=== PATIENT | female | born 1990 | race Caucasian/White ===

== ENCOUNTER 2017-01-10 07:14 | Emergency (ER) | payer MEDICAID ==
[2017-01-10 07:42] LABS: BASOPHILS 0.1 % (0-2); EOSINOPHILS 0.2 % (0-7); HEMATOCRIT 42.8 % (36.0-48.0); HEMOGLOBIN 14.2 g/dL (12-16); IMMATURE GRANULOCYTES 0.2 % (0-5); LYMPHOCYTES 3.3 % (15-50); MCHC 33.2 g/dL (31.0-37.0); MCV 87.3 fL (80.0-100.0); MEAN PLATELET VOLUME 9.9 fL (7.4-10.4); MONOCYTES 3.9 % (2-11); NEUTROPHILS 92.3 % (40-80); RDW 12.5 % (11.5-14.5); WBC 13.8 10x3/uL (4.8-10.8)
[2017-01-10 07:45] LABS: PLATELET COUNT 258 10x3/uL (130-400)
[2017-01-10 07:54] LABS: APPEARANCE HAZY (CLEAR); BILIRUBIN NEGATIVE (NEGATIVE); COLOR YELLOW (YELLOW); GLUCOSE NEGATIVE (NEGATIVE); KETONE MODERATE mg/dL (NEGATIVE); NITRITE NEGATIVE (NEGATIVE); PROTEIN NEGATIVE (NEGATIVE); SPECIFIC GRAVITY 1.005 (1.005-1.020); UROBILINOGEN NORMAL (NORMAL)
[2017-01-10 07:57] LABS: BACTERIA MODERATE /hpf (NONE SEEN); MUCUS <1+ /lpf (NONE SEEN)
[2017-01-10 08:03] LABS: ALBUMIN 4.3 g/dL (3.4-5.0); ALKALINE PHOSPHATASE 61 U/L (46-116); ALT (SGPT) 21 U/L (10-68); BILIRUBIN - TOTAL 0.89 mg/dL (0.2-1.3); CALC OSMOLALITY 280 mosm/kg (275-300); CALCIUM 9.4 mg/dL (8.5-10.1); CARBON DIOXIDE 23.5 mmol/L (21.0-32.0); CHLORIDE - SERUM 102 mmol/L (98-107); CREATININE - SERUM 0.9 mg/dL (0.6-1.3); GLUCOSE 119 mg/dL (74-106); POTASSIUM - SERUM 3.5 mmol/L (3.5-5.1); PROTEIN - SERUM 8.4 g/dL (6.4-8.2); SODIUM 139 mmol/L (136-145); UREA NITROGEN 19 mg/dL (7-18); eGFR NON AFRICAN AMERICAN 81 mL/min (90-120)
== END 2017-01-10 09:57 | disposition home or self-care (01) ==
LOC: D.ER 07:14
PROVIDERS: Emergency Medicine
DX: K52.9 Noninfective gastroenteritis and colitis, unspecified (principal); R82.71 Bacteriuria; F17.200 Nicotine dependence, unspecified, uncomplicated

== ENCOUNTER → 2018-04-16 13:50 | Outpatient (CLI) | payer MEDICAID | END | disposition home or self-care (01) | LOC: D.CT 04-13 14:30 | DX: R10.9 Unspecified abdominal pain (principal) ==

== ENCOUNTER 2019-06-21 22:12 | Emergency (ER) | payer MEDICAID ==
[~2019-06-21] VITALS: Ht 157.5 cm; Wt 54.4 kg
[2019-06-21 22:20] VITALS: Ht 157.5 cm; Wt 54.4 kg
[2019-06-21] MEDS ORDERED: PRISTIQ50 MG PO (22:21)
[2019-06-21] MEDS ORDERED: ELAVIL25 MG PO (22:22)
[2019-06-21] MEDS ORDERED: ADDERALL 20 MG20 M1 PO (22:22)
[2019-06-21] MEDS ORDERED: ULTRAM50 MG PO (22:22)
[2019-06-21] MEDS ORDERED: VALIUM10 MG PO (22:23)
[2019-06-21 22:26] LABS: BASOPHILS 0.5 % (0-2); EOSINOPHILS 2.7 % (0-7); HEMATOCRIT 39.5 % (36.0-48.0); IMMATURE GRANULOCYTES 0.5 % (0-5); LYMPHOCYTES 32.2 % (15-50); MCH 28.6 pg (26.0-34.0); MCHC 32.9 g/dL (31.0-37.0); MEAN PLATELET VOLUME 9.3 fL (7.4-10.4); MONOCYTES 8.8 % (2-11); NEUTROPHILS 55.3 % (40-80); PLATELET COUNT 238 10x3/uL (130-400); RBC 4.54 10x6/uL (4.00-5.40); RDW 12.3 % (11.5-14.5); WBC 7.5 10x3/uL (4.8-10.8)
[2019-06-21 22:34] LABS: CALC OSMOLALITY 276 mosm/kg (275-300); CARBON DIOXIDE 28.3 mmol/L (21.0-32.0); CHLORIDE - SERUM 100 mmol/L (98-107); CREATININE - SERUM 0.9 mg/dL (0.6-1.3); GLUCOSE 103 mg/dL (74-106); POTASSIUM - SERUM 3.7 mmol/L (3.5-5.1); SODIUM 139 mmol/L (136-145); UREA NITROGEN 9 mg/dL (7-18); eGFR NON AFRICAN AMERICAN 79 mL/min (90-120)
[2019-06-21 22:43] LABS: ALKALINE PHOSPHATASE 69 U/L (30-120); ALT (SGPT) 16 U/L (10-68); AMYLASE - SERUM 28 U/L (25-115); BILIRUBIN - TOTAL 0.18 mg/dL (0.2-1.3); LIPASE 70 U/L (73-393); PROTEIN - SERUM 7.7 g/dL (6.4-8.2)
[2019-06-21 22:50] LABS: BILIRUBIN NEGATIVE (NEGATIVE); GLUCOSE NEGATIVE (NEGATIVE); KETONE NEGATIVE (NEGATIVE); NITRITE NEGATIVE (NEGATIVE); UROBILINOGEN NORMAL (NORMAL)
[2019-06-21 22:51] LABS: EPITHELIAL CELLS 0-5 /hpf (0-5); RED CELLS - URINE 0-5 /hpf (0-5)
[2019-06-21 22:52] LABS: BACTERIA FEW /hpf (NEGATIVE); HCG URINE NEGATIVE (NEGATIVE)
[2019-06-21 22:57] LABS: TROPONIN-I < 0.017 ng/mL (0.000-0.060)
[2019-06-22] MEDS ORDERED: DIFLUCAN150 MG PO (01:01)
[2019-06-22] MEDS ORDERED: MACROBID100 MG PO (01:02)
[2019-06-22] MEDS ORDERED: KEFLEX500 MG PO (01:02)
[2019-06-22 02:30] VITALS: BP 123/76
== END 2019-06-22 02:30 | disposition home or self-care (01) ==
LOC: D.ER 22:12
PROVIDERS: Family Medicine
DX: N39.0 Urinary tract infection, site not specified (principal); R30.0 Dysuria; R34 Anuria and oliguria; Z20.2 Contact with and (suspected) exposure to infections with a predominantly sexual mode of transmission; B37.9 Candidiasis, unspecified

== ENCOUNTER 2019-10-01 16:00 | Inpatient (IN) | payer MEDICAID ==
[~2019-10-01] VITALS: Ht 157.5 cm; Wt 49.0 kg
--- NOTE | ~2019-10-01 | OP ---
PATIENT NAME: ROMEL SHANKAR MEDICAL RECORD: [id number] LOCATION:[facility] [id number] ADMISSION DATE:10/03/19 SURGEON: DARWIN ARAMBULA DO DATE OF OPERATION: 10/02/2019 PREOPERATIVE DIAGNOSIS: Right adnexal mass. POSTOPERATIVE DIAGNOSES: Right hemorrhagic cyst, left endometrioma, severe pelvic adhesions, severe endometriosis. PRIMARY SURGEON: Darwin Arambula DO NURSE ASSISTANT SURGEON: Blayne Horn MD ANESTHESIA: General ET tube. PROCEDURE: Right cystectomy, lysis of adhesions, left drainage of endometrioma. FINDINGS: Severe pelvic adhesions in the posterior cul-de-sac of both ovaries and tubes and the posterior uterus to the pelvic sidewalls and posterior part of the abdomen, right hemorrhagic cyst, and left endometrioma. SPECIMENS: Endometriotic lesions, right ovarian cyst wall. ESTIMATED BLOOD LOSS: 50 mL. INTRAVENOUS FLUIDS: 1400 mL. URINE OUTPUT: 300 mL clear urine. COMPLICATIONS: Attempt was made to remove the endometrioma entirely; however, due to the extent of the adhesions of the left ovary to the posterior cul-de-sac and left pelvic sidewall, it was unable to be removed. DESCRIPTION OF PROCEDURE: Risks, benefits, alternatives, and indications of the procedure were discussed with the patient. She voiced understanding of the procedure and signed the consent. She was taken to the OR where general anesthesia was administered and found to be adequate. She was placed in the dorsal lithotomy position. She was prepped and draped in the normal sterile fashion. A urinary catheter was placed under sterile conditions. A speculum was placed in the posterior aspect of the vagina. Single-tooth tenaculum was used to grasp the anterior lip of the cervix. The cervix was dilated to accommodate the HUMI manipulator. The uterus was sounded to 8 cm and the HUMI manipulator was placed without difficulty. Tenaculum was removed with good hemostasis at the tenaculum site. All other instruments besides the HUMI were removed from the vagina. Gloves were changed and attention was then turned to the abdomen. Marcaine was placed in the umbilical fold and a 5 mm incision was created with a scalpel. The abdomen was elevated and the 5 mm port was placed with the laparoscope for visualization. Pneumoperitoneum was achieved to 15 mmHg and an 8 mm port was placed in the left lower quadrant 2 cm superior and 2 cm medial to the left ASIS under direct laparoscopic visualization. A right 5 mm port was placed 2 cm superior and 2 cm medial to the right ASIS under direct laparoscopic visualization with good placement. The patient was placed in steep Trendelenburg position and the bowels were displaced out of the abdomen with a blunt probe. The uterus was elevated and extensive adhesions of the right and OPERATIVE REPORT [id number] DEATHERAGE,ROMEL left ovaries and right and left fallopian tubes were noted to the right and left pelvic sidewalls as well as extensive adhesions of the posterior uterus to the right and left ovaries. There was a large 5 mm hemorrhagic cyst noted on the right. This cyst was attempted to be removed unruptured; however, during the process of removal, it was ruptured and about 20 mL of blood was noted. The capsule was completely removed with a combination of blunt and sharp dissection with good hemostasis at the cyst bed site. Extensive lysis of adhesions of the right ovary and the posterior portion of the uterus was performed with a combination of sharp and blunt dissection with the laparoscopic peanut. On the left, there was a 2 cm chocolate cyst noted, which ruptured during lysis of adhesions. Attempt was made to completely remove the endometrioma; however, only portions of endometrioma were able to be removed due to extensive adhesions of the left ovary and the left cyst to the left pelvic sidewall. The pelvis was copiously irrigated and suctioned and good hemostasis was noted at all lysis of adhesion sites and the cyst removal on the right as well as hemostasis on the left at the endometrioma. At this time, it was determined that this extent of lysis of adhesions was completed and further lysis of adhesions would only increase the risk of complications during the surgery and so Ofelia was placed and all instruments were removed from the abdomen. The patient was taken out of Trendelenburg position and pneumoperitoneum was released. All ports were removed and port sites were closed with 3-0 Monocryl and Dermabond covering. All needle, lap, sponge, and instrument counts were correct times 2. The patient tolerated the procedure well and she was taken to the recovery room in stable condition. NTS:[id number] Voice Confirmation ID: [id number] DOCUMENT ID: [id number] DARWIN ARAMBULA DO CC: [id number] DICTATION DATE: 10/07/191055 [place] DESIGNER: 10/07/192149 DIS IN 10/07/19 [facility] [address] [place] [address]
[~2019-10-01 16:00] MED LIST: ADDERALL 20 MG20 M1 PO; DIFLUCAN150 MG PO; ELAVIL25 MG PO; KEFLEX500 MG PO; MACROBID100 MG PO; PRISTIQ50 MG PO; ULTRAM50 MG PO; VALIUM10 MG PO
--- NOTE | 2019-10-01 16:48 | NUR ---
AMBULATORY TO UNIT FROM [facility]. TAKEN TO ROOM 1219 FOR CONTINUED CARE. VSS. AA&O X3. ORIENTED TO ROOM, VERBALIZES UNDERSTANDING. C/O ABD DISCOMFORT TO RLQ -08/29, REQUESTS INTERVENTION. WILL PROVIDE ONCE ORDERS REC'D.
[2019-10-01 17:03] LABS: BASOPHILS 0.9 % (0-2); EOSINOPHILS 2.1 % (0-7); HEMATOCRIT 35.4 % (36.0-48.0); HEMOGLOBIN 11.4 g/dL (12-16); IMMATURE GRANULOCYTES 0.2 % (0-5); MCH 28.2 pg (26.0-34.0); MCHC 32.2 g/dL (31.0-37.0); MCV 87.6 fL (80.0-100.0); MEAN PLATELET VOLUME 9.6 fL (7.4-10.4); MONOCYTES 9.7 % (2-11); NEUTROPHILS 53.1 % (40-80); PLATELET COUNT 209 10x3/uL (130-400); RBC 4.04 10x6/uL (4.00-5.40); RDW 13.2 % (11.5-14.5); WBC 5.8 10x3/uL (4.8-10.8)
[2019-10-01 17:12] LABS: CALC OSMOLALITY 283 mosm/kg (275-300); CALCIUM 8.6 mg/dL (8.5-10.1); CARBON DIOXIDE 29.7 mmol/L (21.0-32.0); CHLORIDE - SERUM 106 mmol/L (98-107); CREATININE - SERUM 0.9 mg/dL (0.6-1.3); GLUCOSE 104 mg/dL (74-106); POTASSIUM - SERUM 3.7 mmol/L (3.5-5.1); SODIUM 143 mmol/L (136-145); UREA NITROGEN 10 mg/dL (7-18); eGFR NON AFRICAN AMERICAN 79 mL/min (90-120)
--- NOTE | 2019-10-01 17:12 | NUR ---
DR. ARAMBULA AT BEDSIDE, DISCUSSING POC WITH PT AND ANSWERING QUESTIONS. MEDICAL, ANESTHESIA, AND BLOOD CONSENTS SIGNED AND WITNESSED. DR. ARAMBULA EXPLAINED CONSENTS AND RISK AND BENEFITS OF PROCEDURES.
--- NOTE | 2019-10-01 17:26 | NUR ---
C/O RLQ ABD DISCOMFORT, REQUESTS INTERVENTION. IVP HYDROMORPHONE GIVEN PER ORDER AND PT REQUEST. DINNER TRAY PROVIDED. DENIES ADDITIONAL NEEDS. BED IN LOW POSITION WITH SRUP X2. RN REMAINS AT BEDSIDE FOR ADMISSION ASSESSMENT TO BE COMPLETED.
[2019-10-01] MEDS ORDERED: ADDERALL 30 MG30 MG PO (17:29)
[2019-10-01] MEDS ORDERED: ELAVIL25 MG PO (17:30)
[2019-10-01] MEDS ORDERED: CYCLOBENZAPRINE10 MG PO (17:33)
[2019-10-01] MEDS ORDERED: IBUPROFEN800 MG PO (17:34)
[2019-10-01] MEDS ORDERED: THIAMINE IN100 MG/ML IM (17:35)
[2019-10-01] MEDS ORDERED: GABAPENTIN300 MG PO (17:36)
[2019-10-01 17:51] VITALS: BP 102/54; BMI 19.8
--- NOTE | 2019-10-01 17:51 | NUR ---
PAIN REASSESSMENT COMPLETED AT THIS TIME. 05/30. ICE PACK REQUESTED AND PROVIDED PER PT REQUEST. DENIES ADDITIONAL NEEDS. BED IN LOW POSITION WITH SRUP X2. CALL LIGHT AND PHONE WITHIN REACH. WILL CONTINUE TO MONITOR.
[2019-10-01 19:30] VITALS: BP 120/78
--- NOTE | 2019-10-01 19:30 | NUR ---
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
--- NOTE | 2019-10-01 20:04 | NUR ---
REHAN SARGENT, RN TO ROOM TO RESTART IV, PT DECIDED THAT SHE DID NOT WANT IT RESITED, PT INST TO JUST LET ME KNOW IF SHE CHANGES HER MIND, 1ST BAG OF FLAGYL VALENTIN IVPB PER MD ORDERS, SEE BILL, PT C/O HEARTBURN AT THIS TIME, INFORMED PT THAT WHEN I CALL THE DOCTOR I WILL ASK FOR SOMETHING FOR HEARTBURN, PT REQUESTED AND SERVED TAP WATER, DENIES FURTHER NEEDS
--- NOTE | 2019-10-01 20:38 | NUR ---
DR MIRANDA PAGED
--- NOTE | 2019-10-01 20:40 | NUR ---
DR MIRANDA CALLS UNIT, REPORT OF PT'S C/O HEARTBURN, ORDERS FOR PROTONIX 40MG PO X 1 DOSE, READ BACK AND VERIFIED
--- NOTE | 2019-10-01 20:45 | NUR ---
2ND BAG OF FLAGYL HUNG IVPB PER MD ORDERS, SEE EMAR
--- NOTE | 2019-10-01 21:15 | NUR ---
ADM PROTONIX PO AND BENADRYL SIVP PER MD ORDERS, SEE EMAR, PT REPORTS THAT SHE HAS BEEN OUT OF HER REGULAR MEDS THAT SHE TAKES FOR THE LAST COUPLE OF DAYS, INFORMED PT THAT IF SHE STAYS OVERNIGHT TOMORROW NIGHT, THAT DR ARAMBULA WILL MORE THAN LIKELY START HER HOME MEDS THEN, PT VERBALIZES UNDERSTANDING, PT REQUESTED AND PROVIDED TWO BANDAIDS TO PLACE OVER 2 INSECT BITES ON HER LEFT KNEE, PT DENIES FURTHER NEEDS, S/O AT BEDSIDE
--- NOTE | 2019-10-01 21:25 | NUR ---
3RD BAG OF FLAGYL IVPB PER MD ORDERS, SEE EMAR
--- NOTE | 2019-10-01 22:05 | NUR ---
LAST BAG OF FLAGYL HUNG IVPB PER MD ORDERS, SEE EMAR, BEDDING PROVIDED TO S/O, PT REPORTS FEELING BETTER, CONSUME CUP OF PUDDING, DENIES ANY NAUSEA AT THIS TIME, REPORTS THAT S/O WENT OUT TO GET SOMETHING TO EAT AND A COUPLE OF CHEESE ROLL UPS FOR HER, PT INST TO TAKE IT EASY EATING DUE TO HEARTBURN AND NAUSEA EARLIER, PT STATES "OH, I FEEL BETTER NOW, BUT I WILL PROBABLY WANT SOMETHING FOR PAIN LATER", PT INST TO USE CALL LIGHT WHEN NEEDING SOMETHING FOR PAIN, PT VERBALIZES UNDERSTANDING, DENIES NEEDS AT THIS TIME
[2019-10-02] VITALS (9 sets, daily range): BP systolic 102–140; BP diastolic 55–83; Ht 157.5 cm; Wt 49.0 kg
--- NOTE | 2019-10-02 00:12 | NUR ---
PT AWAKE, VS OBTAINED, PT C/O LRQ PAIN, ADM DILAUDID SIVP PER MD ORDERS, SEE EMAR, PT INST OF NPO, WATER AND SNACKS CLEARED FROM BEDSIDE TABLE, PT VERBALIZES UNDERSTANDING, DENIES FURTHER NEEDS, S/O ASLEEP AT BEDSIDE
--- NOTE | 2019-10-02 02:12 | NUR ---
SPOKE TO KEYLA FLORES, CHEMIST ASSISTANT REGARDING PT'S SURGERY THIS AM, ORDER NOT IN COMPUTER, SHE REPORTS TO PUT ORDER IN COMPUTER AND WHAT CONSENT IS FOR
--- NOTE | 2019-10-02 02:16 | NUR ---
PT RESTING WITH EYES CLOSED, AROUSES TO OPENING OF DOOR, PT DENIES NEEDS OR PAIN AT THIS TIME, S/O ASLEEP AT BEDSIDE
--- NOTE | 2019-10-02 04:20 | NUR ---
PT RESTING WITH EYES CLOSED, RESP QUIE, NO DISTRESS NOTED, LEFT UNDISTURBED AT THIS TIME, S/O ASLEEP AT BEDSIDE
--- NOTE | 2019-10-02 05:45 | NUR ---
PT RESTING WITH EYES CLOSED, AROUSES TO SOFT VERBAL STIMULATION, PT UP TO BR, VOIDED WITH NO DIFFICULTY, PT BACK TO BED, VS OBTAINED, SURGICAL CHECK LIST AND LATEX ALLERGY TOOL COMPLETED, PT GIVEN HIBICLENSE BED BATH, CLEAN GOWN APPLIED, JEWELRY AND HAIR TIE REMOVED, SURGICAL CAP, BLUE SKID SOCKS, AND SCD'S APPLIED, POC DISCUSSED WITH PT, PT VERBALIZES UNDERSTANDING, DENIES QUESTIONS
--- NOTE | 2019-10-02 06:20 | NUR ---
SURGERY NOTIFIED FOR PRE PROCEDURAL MED ORDERS
--- NOTE | 2019-10-02 06:32 | NUR ---
L&D CALLS UNIT TO REPORT THAT DR DAVID WAS PUTTING ORDERS IN AT THIS TIME
--- NOTE | 2019-10-02 07:02 | NUR ---
PATIENT LEFT FOR SURGERY.
[2019-10-02 07:35] LABS: HCG SERUM NEGATIVE (NEGATIVE)
--- NOTE | 2019-10-02 11:04 | NUR ---
RECIEVED PATIENT FROM RECOVERY. REPORT TAKEN FROM DEB TINSLEY RN.
--- NOTE | 2019-10-02 11:20 | NUR ---
ASSESSMENT COMPLETE. VSS. 900CC OF CLEAR YELLOW URINE EMPTIED OUT OF HILLS CATH. PATIENT REQUESTING TO HAVE CATH REMOVED SO SHE CAN GET UP OUT OF BED. ADVISED PATIENT DR ARAMBULA WOULD BE ROUNDING SOON AND WE COULD TALK TO HER. PATIENT TEARFUL WHEN TALKING ABOUT SURGERY. DENIES NEEDS EXCEPT TO HAVE CATH REMOVED AT THIS TIME. SCD'S ON BILATERALLY, CALL LIGHT IN REACH, SIDE RAILS UP X 2.
--- NOTE | 2019-10-02 11:45 | NUR ---
ROOM CHECK ON PATIENT. COLD WATER AND SPRITE PROVIDED. PATIENT SIPPING ON WATER. PATIENT CURRENTLY TALKING ON PHONE. SCD'S ON BILATERALLY, CALL LIGHT IN REACH, PHONE IN REACH, SIDE RAILS UP X2. ADVISED PATIENT WHEN DR ARAMBULA PUT IN ORDER WOULD COME IN AND TAKE HILLS CATH OUT. PATIENT VERBALIZED AGREEMENT.
--- NOTE | 2019-10-02 11:45 | NUR ---
DR ARAMBULA IN ROOM WITH PATIENT.
--- NOTE | 2019-10-02 12:15 | NUR ---
ROOM CHECK. NEW ORDERS FROM DR. ARAMBULA REVIEWED WITH PATIENT. PATIENT VERBALIZES UNDERSTANDING AND AGREEMENT. ADVISED PATIENT WOULD BE BACK WITH SUPPLIES TO TAKE HILLS CATH OUT AND D/C IV. CALL LIGHT IN REACH, SIDE RAILS UP X 2. SCD'S ON BILATERALLY.
--- NOTE | 2019-10-02 13:00 | NUR ---
HILLS CATH D/C'D WITH TIP INTACT PER ORDER. PATIENT STATES THAT IT STUNG WHEN CATH WAS COMING OUT. IV RIGHT AC D/C'D WITH TIP INTACT. PATIENT REPORTS THAT ARM HAS BEEN HURTING HER WHERE IV SITE WAS. PATIENT WAS GIVEN VALIUM 10MG PER ORDER. PATIENT REFUSED EFFEXOR STATES THAT IS NOT WHAT SHE TAKES. WILL CONTACT DR FOR NEW ORDER FOR HOME MED. CALL LIGHT IN REACH, SCD'D ON BILAT. SIDE RAILS UP X 2.
--- NOTE | 2019-10-02 14:00 | NUR ---
ROOM CHECK. PATIENT UP TO VOID--300 CC OF CLEAR YELLOW URINE. PATIENT STATES IT FELT GOOD TO STAND UP FOR A FEW MINUTES. PATIENT NEEDED ASSISTANCE WITH PULLING UP UNDERWARE--UNABLE TO BEND OVER WITH OUT PAIN. VSS. PATIENT DENIES ANY NEEDS AT THIS TIME. PATIENT BACK TO BED. CALL LIGHT IN REACH, SCD'D ON BILAT, SIDE RAILS UP X 2.
--- NOTE | 2019-10-02 15:32 | NUR ---
ALSO SPOKE WITH DR PADGETT ON PATIENTS EFFEXOR ORDER. PATINT STATES SHE TAKES DESVENLAFAXINE (PRISTIQ) 50MG DAILY. ORDER RECIEVED FROM DR. PADGETT.
--- NOTE | 2019-10-02 15:32 | NUR ---
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 STATES PAIN IS STILL UNBEARABLE. DR. PADGETT CALLED. ORDERS FOR REGULAR DIET. CHANGE DILAUDID ORDER TO 1MG EVERY 4 HOURS FOR MILD TO MODERATE PAIN, MAY HAVE DILAUID 2MG EVERY 4 HOURS FOR MODERATE TO SEVERE PAIN. START ON PO PAIN PILLS--PERCOCET 5MG, 1 EVERY 4 HOURS FOR MILD TO MODERATE PAIN OR 2 TABS EVERY 6 HOURS FOR MODERATE TO SEVERE PAIN. GIVE 1MG DILAUDID IVP AND 5MG PERCOCET PO NOW. PATIENT UPDATED ON CHANGE IN MEDICATION AND VERBALIZED UNDERSTANDING AND AGREEMENT.
--- NOTE | 2019-10-02 16:00 | NUR ---
ROOM CHECK. VSS. PATIENT UP TO VOID 350CC CLEAR YELLOW URINE. PATIENT NEEDING ASSISTANCE WITH PULLING UP UNDERWARE. STATES PRIOR TO GETTING UP TO BATHROOM HER PAIN LEVEL WAS DOWN TO A 4 OR 5. SIG OTHER ASLEEP IN ROOM. PATIENT DENIES NEEDS AT THIS TIME. CALL LIGHT IN REACH, SIDE RAILS UP X 2, SCD'S ON BILAT.
--- NOTE | 2019-10-02 17:20 | NUR ---
ROOM CHECK. PATIENT RESTING. DENIES NEEDS AT THIS TIME. SIDE RAILS UP X 2, SCD'S ON BILAT, CALL LIGHT IN REACH.
--- NOTE | 2019-10-02 18:10 | NUR ---
PATIENT AND SIG OTHER OUT WALKING IN THE HALLWAY. PATIENT DENIES NEEDS.
--- NOTE | 2019-10-02 18:38 | NUR ---
PATIENT MOVED TO 1278. PATIENT WALKED TO NEW ROOM PUSHING THE WHEELCHAIR WITH HER BELONGINGS. PATIENT ORIENTATED TO NEW ROOM. SHE VERBALIZED UNDERSTANDING. DENIES NEEDS AT THIS TIME. CALL LIGHT IN REACH, SIDE RAILS UP X 2.
--- NOTE | 2019-10-02 20:01 | NUR ---
TORADOL 30MG SLOW IVP PER MD ORDERS AND PT REQUEST. SEE EMAR
--- NOTE | 2019-10-02 20:37 | NUR ---
PATIENTS SIGNIFICANT OTHER TO ROOM WITH ICE CREAM, PT SITTING UP IN BED EATING.
--- NOTE | 2019-10-02 20:38 | NUR ---
ADMINISTERED PERCOCET 5/325MG TWO TABLETS PO PER MD ORDERS AND PT REQUEST FOR PAIN 05/30. SEE EMAR
--- NOTE | 2019-10-02 21:50 | NUR ---
PATIENT AMBULATING IN HALLWAY
--- NOTE | 2019-10-02 22:02 | NUR ---
PT BACK TO ROOM, BENADRYL AND SIMETHICONE ADMINISTERED PER MD ORDERS AND PT REQUEST. NO FURTHER NEEDS IDENTIFIED. SEE EMAR
--- NOTE | 2019-10-03 00:11 | NUR ---
called to room by patient, pt c/o pain. dilaudid 2 mg. administered slow ivp per md orders and pt request. no further needs identified. will continue to monitor.
--- NOTE | 2019-10-03 01:15 | NUR ---
BROUGHT CONRAD TO PATIENTS ROOM PER PT REQUEST BUT PT NOTED TO BE SLEEPING. RETURNED TO [facility].
--- NOTE | 2019-10-03 03:29 | NUR ---
PATIENT SLEEPIGN WITH AUDIBLE SNORING NOTED. NO DISTRESS, WILL CONTINUE TO MONITOR.
--- NOTE | 2019-10-03 05:55 | NUR ---
PT CALLED OUT COMMERCIAL APPRAISER GARCIA FOR PAIN MEDICATION AT THIS TIME
--- NOTE | 2019-10-03 06:12 | NUR ---
IN TO BRING PT PAIN MEDICATION, PATIENT IS SLEEPING. WILL COME BACK LATER.
[2019-10-03 07:29] VITALS: BP 110/61
--- NOTE | 2019-10-03 07:30 | NUR ---
ASSESSMENT COMPLETE. RATES PAIN 09/29. DILAUDID 2MG SLOW IVP GIVEN PER ORDERS. PATIENT STATES ABLE TO BURP BUT NOT PASSING ANY OTHER GAS. FEELS LIKE IF SHE COULD THE PAIN WOULD GET BETTER. STAB INCISIONS X3 ON ABDOMEN WITHOUT REDNESS, SITE WNL. LEFT HAND SL-SITE WNL. VSS. PATIENT SITTING UP IN BED EATING BREAKFEST. CALL LIGHT IN REACH. SIDE RAILS UP X 2. PATIENT UP INDEPENDENT IN ROOM.
[2019-10-03 07:34] LABS: BASOPHILS 0.4 % (0-2); EOSINOPHILS 3.1 % (0-7); HEMOGLOBIN 9.9 g/dL (12-16); IMMATURE GRANULOCYTES 0.3 % (0-5); LYMPHOCYTES 38.3 % (15-50); MCH 28.5 pg (26.0-34.0); MCHC 31.9 g/dL (31.0-37.0); MCV 89.3 fL (80.0-100.0); MEAN PLATELET VOLUME 10.1 fL (7.4-10.4); MONOCYTES 9.3 % (2-11); NEUTROPHILS 48.6 % (40-80); PLATELET COUNT 197 10x3/uL (130-400); RBC 3.47 10x6/uL (4.00-5.40); RDW 13.5 % (11.5-14.5)
--- NOTE | 2019-10-03 09:02 | NUR ---
PATIENT WITH COMPLAINTS OF NOT BEING ABLE TO PASS [place] OR HAVE A BOWEL MOVMENT. DUCOLAX SUP GIVEN PER ORDERS.
--- NOTE | 2019-10-03 10:46 | NUR ---
ROOM CHECK. PATIENT STATES SHE WAS ABLE TO HAVE A SMALL BOWEL MOVMENT WITH GAS. VOIDED X 1 (DID NOT MEASURE). FEELS A LITTLE BETTER AFTER PASSING SOME GAS. DENIES ANY NEEDS AT THIS TIME. CALL LIGHT IN REACH, SIDE RAILS UP X2.
[2019-10-03 12:05] VITALS: BP 101/60
--- NOTE | 2019-10-03 12:07 | NUR ---
ROOM CHECK. PATIENT STATES HAS BEEN ABLE TO PASS SOME GAS. WILL WALK HALWAYS AFTER LUNCH. UP INDEPENDENT IN ROOM. PATIENT LAYING ON HER LEFT SIDE IN BED. CALL LIGHT IN REACH, SIDE RAILS X 2.
--- NOTE | 2019-10-03 12:15 | NUR ---
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 STATES SHE COUGHED UP SOME PHELGM THAT WAS BROWN WITH SPOTS OF BLOOD. STATES THE OUTSIDE OF HER NECK AND UPPER CHEST ARE STARTING TO HURT AND SHE CAN FEEL "BUBBLES" UNDER HER SKIN. RN PALPATED SOME CREPITUS ON RIGHT SIDE OF NECK. PATIENT STATES WAS VERY TENDER TO THE TOUCH. PATIENT ADVISED RN WOULD CONTACT DR. ARAMBULA.
--- NOTE | 2019-10-03 12:20 | NUR ---
DR ARAMBULA CONTACTED. ORDERS FOR ANESTHESIA TO COME LOOK AT PATIENT AND CHEST XRAY. PATIENT UPDATED AND EDUCATED ON PLAN. SHE VERBALIZED UNDERSTANDING AND AGREEMENT.
--- NOTE | 2019-10-03 12:22 | NUR ---
SPOKE WITH DR ROBERSON-HE WILL SEND SOMEONE TO SEE PATIENT.
--- NOTE | 2019-10-03 12:30 | NUR ---
DR ARAMBULA IN TO SEE PATIENT.
--- NOTE | 2019-10-03 12:47 | NUR ---
PATIENT SENT TO XRAY.
--- NOTE | 2019-10-03 12:59 | NUR ---
PATIENT BACK FROM XRAY.
--- NOTE | 2019-10-03 13:25 | NUR ---
ROOM CHECK. PATIENT UP TO BATHROOM. STATES PASSING GAS. NECK, SHOULDERS AND UPPER CHEST CONTINUE TO HURT. PATIENT REQUESTING VALIUM. VALIUM 10MG GIVEN PER ORDER. PATIENT DENIES ANY OTHER NEEDS. CALL LIGHT IN REACH, SIDE RAILS UP X2.
--- NOTE | 2019-10-03 14:11 | NUR ---
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 RATES PAIN 6/10 IN NECK, SHOULDERS AND CHEST. STATES ABD IS STARTING TO FEEL BETTER AFTER PASSING GAS. PERCOCET PO GIVEN PER ORDERS. CALL LIGHT IN REACH, SIDE RAILS UP X 2.
--- NOTE | 2019-10-03 15:35 | NUR ---
ROOM CHECK. PATIENT RESTING WITH EYES CLOSE. STATES SHE FOUND A COMFORTABLE POSITION AND IS DOING OK. CONTINUES TO PASS GAS. DENIES NEEDS AT THIS TIME. CALL LIGHT IN REACH, SIDE RAILS X 2.
--- NOTE | 2019-10-03 15:41 | NUR ---
CALLED DR. ARAMBULA WITH RESULTS OF NECK XRAY. SHE WILL CALL BACK WITH ORDERS.
--- NOTE | 2019-10-03 16:05 | NUR ---
ROOM CHECK. PATIENT RESTING IN BED. RATES PAIN 5/10. STATES IS GETTING BETTER. DENIES NEEDS AT THIS TIME. CALL LIGHT IN REACH. SIDE RAILS UP X 2.
--- NOTE | 2019-10-03 16:10 | NUR ---
SPOKE WITH DR ARAMBULA. STATES XRAY SHOWS AIR IN ABDOMEN WHICH CAN BE A RESULT OF THE SURGERY. MONITOR PATIENT FOR S/S OF INFECTION AND RESP DISTRESS , VITALS Q4 WITH PULSE OX AND CBC IN AM. WILL KEEP PAITENT OVERNIGHT. PATIENT NOTIFIED OF POC FOR TREATMENT. VSS. PATIENT VERBALIZED UNDERSTANDING AND AGREEMENT.
[2019-10-03 16:19] VITALS: BP 106/51
--- NOTE | 2019-10-03 16:30 | NUR ---
ROOM CHECK. PATIENT RESTING IN BED. STATES HAS BEEN UP TO THE BATHROOM ONCE IN THE PAST HOUR. STATES VOIDING GOOD, PASSING GAS. DENIES NEEDS. CALL LIGHT IN REACH, SIDE RAILS UP X2.
--- NOTE | 2019-10-03 17:06 | NUR ---
ROOM CHECK. PATIENT STATES STOMACH FEELS BETTER, PAIN CONTINUES IN NECK, SHOULDER AND CHEST. DENIES ANY TROUBLE BREATHING. PATIENT UP TO BATHROOM. MOM IN ROOM WITH PATIENT. PATIENT DENIES ANY NEEDS AT THIS TIME.
--- NOTE | 2019-10-03 18:16 | NUR ---
ROOM CHECK. RATES PAIN 07/30. PERCOCET PO GIVEN PER ORDER. PATIENT DENIES NEEDS AT THIS TIME. CALL LIGHT IN REACH, SIDE RAILS UP X 2.
--- NOTE | 2019-10-03 18:52 | NUR ---
PAIN REASSESSMENT. PATIENT SLEEPING. BREATHING EVEN AND UNLABORED. WILL LET PATIENT REST.
--- NOTE | 2019-10-03 19:00 | NUR ---
PATIENT SLEEPING WITH EVEN RESPIRATIONS, NO DISTRESS NOTED. WILL COME BACK FOR SHIFT ASSESSMENT.
--- NOTE | 2019-10-03 20:00 | NUR ---
PATIENT CONTINUES TO BE SLEEPING WITH EVEN RESPIRATIONS, NO DISTRESS NOTED. WILL COME BACK FOR SHIFT ASSESSMENT.
--- NOTE | 2019-10-03 21:00 | NUR ---
PATIENT CONTINUES TO SLEEP WITH EVEN RESPIRATIONS, NO DISTRESS NOTED. WILL COME BACK FOR SHIFT ASSESSMENT.
--- NOTE | 2019-10-03 22:14 | NUR ---
PATIENT CONTINUES TO SLEEP WITH EVEN RESPIRATIONS, NO DISTRESS NOTED.
--- NOTE | 2019-10-03 22:24 | NUR ---
GABAPENTIN AND BENADRYL GIVEN PER MD ORDERS AND PT REQUEST, SEE EMAR
[2019-10-03 22:28] VITALS: BP 114/77
--- NOTE | 2019-10-03 22:28 | NUR ---
PATIENTS NECK NOT NOTED TO BE EDEMATOUS, CREPITUS FELT/HEARD ON BOTH SIDES OF NECK, PT STATES THAT IT IS SORE. NO RESPIRATORY DISTRESS, LUNG SOUNDS CLEAR BILATERALLY. WILL CONTINUE TO MONITOR.
--- NOTE | 2019-10-03 22:28 | NUR ---
CALLED TO ROOM BY PATIENT, STATES THAT SHE JUST WOKE UP AND SHE IS HURTING. SHIFT ASSESSMENT COMPLETED AT THIS TIME, SEE FLOWSHEET.
--- NOTE | 2019-10-03 22:30 | NUR ---
PT REQUESTING HER PERCOCET.
--- NOTE | 2019-10-03 22:32 | NUR ---
PERCOCET 5/325 MG TWO TABLETS PO PER MD ORDERS AND PT REQUEST. SEE EMAR
--- NOTE | 2019-10-03 23:17 | NUR ---
PATIENT AMBULATING IN HALLWAY, TOILETRIES PROVIDED FOR THE PT TO TAKE A SHOWER. NO FURTHER NEEDS IDENTIFIED/ WILL CONTINUE TO MONITOR
--- NOTE | 2019-10-04 00:05 | NUR ---
PT SITTING UP IN BED USING HER PHONE, STATES THAT SHE IS LOOKING AT FACEBOOK. NO DISTRESS NOTED. WILL CONTINUE TO MONITOR
--- NOTE | 2019-10-04 01:07 | NUR ---
PATIENT EATING PUDDING, REQUESTS HER VALIUM, VALIUM ADMINISTERED AT THIS TIME PER MD ORDERS AND PT REQUEST. SEE EMAR. NO FURTHER NEEDS IDENTIFIED. WILL CONTINUE TO MONITOR.
--- NOTE | 2019-10-04 02:35 | NUR ---
ADMINISTERED PERCOCET 5/325MG TWO TABS PO PER MD ORDERS AND PT REQUEST. SEE EMAR.
--- NOTE | 2019-10-04 04:06 | NUR ---
PATIENT SLEEPING WITH EVEN RESPIRATIONS, NO DISTRESS NOTED. WILL CONTINUE TO MONITOR
--- NOTE | 2019-10-04 06:37 | NUR ---
CALLED TO ROOM BY PATIENT, PT REQUESTING PAIN MEDICATION. PERCOCET 5/325MG TWO TABS PO PER MD ORDERS AND PATIENT REQUEST. NO FURTHER NEEDS IDENTIFIED. WILL CONTINUE TO MONITOR.
--- NOTE | 2019-10-04 07:20 | NUR ---
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 THIS RN TO ROOM WITH REQUESTED ITEMS. PT SATES HER PAIN IS A LITTLE BETTER AFTER PERCOCET, BUT RATES PAIN IN NECK, SHOULDERS, AND PELVIS AT 6/10. POC DISCUSSED WITH PT, MED TIMES UPDATED ON BOARD. PT STATES SHE JUST SAW DR ROBERSON WHO IS ORDERING AN XRAY TO BE DONE. PT CONTINUES EATING BREAKFAST, DENIES NEEDS FROM THIS RN AT THIS TIME. PT ENCOURAGED TO FINISH EATING BREAKFAST AND WILL RETURN FOR FULL SHIFT ASSESSMENT AFTER SHE IS FINISHED EATING. SRUx2, CL IN REACH.
[2019-10-04 07:46] LABS: BASOPHILS 0.3 % (0-2); HEMATOCRIT 32.9 % (36.0-48.0); HEMOGLOBIN 10.4 g/dL (12-16); IMMATURE GRANULOCYTES 0.3 % (0-5); LYMPHOCYTES 40.8 % (15-50); MCH 28.5 pg (26.0-34.0); MCHC 31.6 g/dL (31.0-37.0); MCV 90.1 fL (80.0-100.0); MEAN PLATELET VOLUME 10.2 fL (7.4-10.4); MONOCYTES 10.3 % (2-11); NEUTROPHILS 43.3 % (40-80); PLATELET COUNT 195 10x3/uL (130-400); RBC 3.65 10x6/uL (4.00-5.40); RDW 13.4 % (11.5-14.5); WBC 5.8 10x3/uL (4.8-10.8)
[2019-10-04 08:27] VITALS: BP 118/72
--- NOTE | 2019-10-04 08:37 | NUR ---
THIS RN TO ROOM FOR SHIFT ASSESSMENT AND TO ADMIN MORNING MEDS. PT SITTING UP IN BED, WATCHING TELEVISION. SHIFT ASSESSMENT COMPLETED, VSS, SEE FLOWSHEET FOR DOC. LEFT HAND/WRIST SALINE LOCK PIV IS C/D/I. 3 LAP ABD INCISIONS ARE C/D WITH DERMABOND INTACT. VERY MILD CREPITUS PALPATED OVER CLAVICLES BILATERALLY. PT DENIES SOB, STATES THROAT JUST FEELS SORE AND "FULL". OXYGEN SATURATION 100%. PT STATES "I JUST FEEL TIRED, AND LIKE I'M UNDERWATER IF THAT MAKES SENSE." NO EDEMA NOTED TO FACE, NECK, UPPER OR LOWER EXTREMITIES. MORNING MEDS GIVEN, SEE EMAR FOR DOC. PT DENIES NEEDING SCHEDULED NICOTINE PATCH, STATES SHE IS NOT A SMOKER. PT DENIES NEEDS AT THIS TIME, STATES SHE WILL BE READY FOR PAIN MED AND GAS-X WHEN IT IS TIME AT 4 HOUR JOHNNY. SRUx2, CL IN REACH. WILL CONT TO MONITOR.
--- NOTE | 2019-10-04 10:00 | NUR ---
XRAY TO ROOM
--- NOTE | 2019-10-04 10:10 | NUR ---
PT PROVIDED WITH ICE PER REQUEST, STATES IS READY FOR PAIN MEDS WHEN IT IS TIME. LYING IN BED ON LEFT SIDE WITH LIGHTS DIMMED. SRUx2, CL IN REACH.
--- NOTE | 2019-10-04 10:50 | NUR ---
DR ARAMBULA PHONED AND REPORT GIVEN ON THIS AM LABS, XRAY REPORT ORDERED BY DR ROBERSON, PT STATUS AND REQUEST FOR TORADOL "LIKE SHE WAS GETTING IN HER IV BEFORE." ORDER RECEIVED TO D/C TORADOL AND START ON PO MOTRIN INSTEAD, STATES WILL ENTER ORDERS HERSELF, AND WILL COME ROUND ON PT LATER.
[2019-10-04 12:15] VITALS: BP 106/75
--- NOTE | 2019-10-04 12:21 | NUR ---
DR ARAMBULA TO ROOM FOR ROUNDING, AWAKENS PT TO VOICE FOR ASSESSMENT. POC DISCUSSED, MED CHANGES MADE AND POC DISCUSSED. PT STATES SHE DOES NOT WANT TO GO HOME YET, DR ARAMBULA STATES SHE WILL LIKELY KEEP PT UNTIL MONDAY TO CONTINUE MONITORING AND FOR DAILY CBC'S. PT AGREEABLE. PT DENIES QUESTIONS. MOTRIN 600MG ADMIN PO ORDERED FOR PAIN, SEE EMAR FOR DOC. PT DENIES FURTHER NEEDS. SRUx2, CL IN REACH. WILL CONT TO MONITOR.
--- NOTE | 2019-10-04 12:58 | NUR ---
PROTONIX ADMIN SLOW IVP OVER 2 MIN ORDERED, SEE EMAR FOR DOC.
--- NOTE | 2019-10-04 13:39 | NUR ---
RADIOLOGY TO UNIT FOR ESOPHOGRAM ORDERED, QUESTIONS IF PT HAS BEEN NPO. INFORMED PT ATE LUNCH JUST PRIOR TO DR ARAMBULA PLACING ORDER, AND THAT DR ARAMBULA STATES IF PT NEEDS TO BE NPO FOR PROCEDURE THEN SHE CAN HAVE IT DONE THIS EVENING OR TOMORROW MORNING, PT WILL LIKELY REMAIN INPATIENT STATUS UNTIL MONDAY FOR SERIAL CBC'S OVER THE WEEKEND. RADIOLOGY STAFF PHONES DEPT TO QUESTION RADIOLOGIST. STATES WILL CALL BACK WITH UPDATED ANSWER ON IF PT MUST BE NPO AND HOW MANY HOURS.
--- NOTE | 2019-10-04 13:51 | NUR ---
Nutrition Follow-up: POD 2 R cystectomy, lysis of adhesions, L drainage of endometrioma. Advanced to regular diet. Tolerating PO intake. Noted esophagram ordered. Diet: Regular Wt: 108# (10/01) Labs reviewed Meds noted: Dulcolax, Colace, Protonix -Encourage PO intake and honor food preferences. -Monitor wt. -RD following.
--- NOTE | 2019-10-04 16:20 | NUR ---
PT BACK TO ROOM VIA W/C FROM RADIOLOGY. PT UP AMBULATING IN ROOM. RADIOLOGY STAFF INSTRUCTING PT ON DRINKING TO CLEAR BARIUM AND EXPECT WHITE STOOLS FOLLOWING STUDY. PT VERBALIZES UNDERSTANDING, AMBULATES TO COFFEE POT FOR COFFEE. PT DENIES NEEDS AT THIS TIME.
--- NOTE | 2019-10-04 17:30 | NUR ---
PT PROVIDED WITH ANTIBIOTIC OINTMENT FROM NURSERY PER REQUEST FOR BUG BITES ON LEG. LESION NOTED NOT DRAINING, PT STATES DR ARAMBULA HAS ALREADY SEEN IT. PT DENIES FURTHER NEEDS AT THIS TIME. LIGHTS IN ROOM DIM PER PT. SRUx2, CL IN REACH. WILL CONT TO MONITOR.
--- NOTE | 2019-10-04 19:15 | NUR ---
REPORT TO PM SHIFT.
--- NOTE | 2019-10-04 19:40 | NUR ---
Pt resting quielty with eyes closed, awakend to noise stimuli. VSS. c/o pain "all over" rated at 7/10 Percocet 10 mg, motrin 600mg, and gas x given per pt request. offered warm pack to sore areas pt declined. offered shower pt declined. shift assessment complete. lung sounds clear bilaterally, no crepitus palpated over neck, shoulders, or chest. abd soft but round bandaids intact to abd. pt states is passing gas. encouraged to walk halls more frequently. she states she walks often for drinks. denies any further needs or wants. whiteboard updated for [facility]. call light in reach and sr up x1
[2019-10-04 20:02] VITALS: BP 104/60
--- NOTE | 2019-10-04 22:15 | NUR ---
Pt c/o burning areas on arms and legs and one on upper chest. pt states these began the night before admission and have spread and worsened. pt points to 4 circular 0.5-1cm reddened areas 1 on left knee with small amount of clear-yellow pus draining. pt points to 2 other areas on chest and arms stating "it feels like more are starting because it's burning". pt request restarting her benadryl will notify bingo caller .
--- NOTE | 2019-10-04 22:40 | NUR ---
notified of pt request for benadryl and explained multiple random reddened burning areas. new orders for culture and benadryl
--- NOTE | 2019-10-04 23:00 | NUR ---
reddened "blister like" area with clear-yellow pus cultured.
--- NOTE | 2019-10-04 23:08 | NUR ---
benadryl 25 mg given po per pt request, she also requests her next pain med wesley.
--- NOTE | 2019-10-05 02:09 | NUR ---
pt resting quietly with eyes closed, no distress noted. call light in reach sr up x2
[2019-10-05 06:06] LABS: BASOPHILS 0.3 % (0-2); HEMATOCRIT 35.4 % (36.0-48.0); IMMATURE GRANULOCYTES 1.8 % (0-5); LYMPHOCYTES 21.7 % (15-50); MCH 30.7 pg (26.0-34.0); MCHC 33.9 g/dL (31.0-37.0); MCV 90.5 fL (80.0-100.0); MEAN PLATELET VOLUME 8.8 fL (7.4-10.4); MONOCYTES 14.2 % (2-11); PLATELET COUNT 297 10x3/uL (130-400); RBC 3.91 10x6/uL (4.00-5.40); RDW 14.9 % (11.5-14.5); WBC 11.5 10x3/uL (4.8-10.8)
--- NOTE | 2019-10-05 06:18 | NUR ---
pt resting quietly with eyes closed, no distress noted.
[2019-10-05 09:50] VITALS: BP 113/65
--- NOTE | 2019-10-05 09:50 | NUR ---
dr malone here to see pt. pt co pain abd, lower back and shoulders. dr malone views blister like x1 rt lower arm and legs. culture done last pm. lap incisions on abd noted with dermabond. see assessment.
--- NOTE | 2019-10-05 10:19 | NUR ---
REQUESTING VALIUM- STATES NEEDS FOR ANXIETY.
--- NOTE | 2019-10-05 11:28 | NUR ---
ASLEEP- RESP REG AND EVEN WHEN ENTERED ROOM.
[2019-10-05 12:42] LABS: BASOPHILS 0.2 % (0-2); EOSINOPHILS 3.8 % (0-7); HEMATOCRIT 31.9 % (36.0-48.0); IMMATURE GRANULOCYTES 0.2 % (0-5); LYMPHOCYTES 26.4 % (15-50); MCH 27.7 pg (26.0-34.0); MCHC 31.3 g/dL (31.0-37.0); MEAN PLATELET VOLUME 9.7 fL (7.4-10.4); MONOCYTES 11.7 % (2-11); NEUTROPHILS 57.7 % (40-80); RBC 3.61 10x6/uL (4.00-5.40); RDW 12.8 % (11.5-14.5)
[2019-10-05 12:44] LABS: MCV 88.4 fL (80.0-100.0); PLATELET COUNT 174 10x3/uL (130-400); WBC 6.5 10x3/uL (4.8-10.8)
--- NOTE | 2019-10-05 13:30 | NUR ---
AMBULATES IN [facility] WELL.
[2019-10-05 13:59] VITALS: BP 115/64
--- NOTE | 2019-10-05 14:02 | NUR ---
RATES PAIN A 7 ON SCALE OF 0-10. CO PAIN ABD AND BACK. ABD SOFT. INCISIONS APPEARANCE WNL. NO OBVIOUS SWELLING OF NECK AREA. SWOLLOWING MEDS WITHOUT PROBLEMS.
[2019-10-05 17:27] VITALS: BP 115/75
--- NOTE | 2019-10-05 17:31 | NUR ---
SITTING UP IN BED EATING DINNER. IBUPROFEN GIVEN PER REQUEST.
--- NOTE | 2019-10-05 18:06 | NUR ---
UP AND ABOUT IN ROOM.
--- NOTE | 2019-10-05 19:00 | NUR ---
report to pm shift.
[2019-10-05 19:45] VITALS: BP 121/78
--- NOTE | 2019-10-05 19:45 | NUR ---
PT UP AMBULATING IN [facility] AND ROOM. VS OBTAINED. SHIFT ASSESSMENT COMPLETE. PERRLA LUNG SOUNDS CLEAR TO AUSCULATAION. HEART SOUNDS NORMAL WITHOUT MURMUR OR EXTRA HEART SOUNDS. ABD SOFT ROUND, BS POSITIVE, ABD INCISIONS CLEAN & DRY WITH GLUE INTACT. PT STATES IS PASSING FLATUS AND HAD ONE SMALL BM TODAY. D/W PT HOW PAIN MEDICATIONS SLOW PERISTALSIS AND ENCOURAGED TO TRY TO DECREASE AMOUNT OF NARCOTIC PAIN MED IF POSSIBLE AND DRINK 8-10 GLASSES OF WATER/DAY. PT VOICED UNDERSTANDING. FRIEND AT BEDSIDE.
--- NOTE | 2019-10-05 23:13 | NUR ---
DULCOLAX SUPPOSITORY GIVEN PER PT FOR C/O CONSTIPATION.
--- NOTE | 2019-10-05 23:13 | NUR ---
PT RESTING QUIETLY WITH EYES CLOSED NO DISTRESS NOTED.
--- NOTE | 2019-10-06 03:55 | NUR ---
pt resting quietly with eyes closed, awakened easliy to noise stimuli and pt requests pain med. Pt also states had large BM after suppository earlier
--- NOTE | 2019-10-06 06:00 | NUR ---
pt awake resting in bed, Motrin 600 mg given po for c/o abd aching and soreness from coughing and bowel movements. states she has had cough for several days denies any sputum. sob, dysuria. lung sounds remain clear. pt instructed to use incentive spirometer every 2 hours while awake and to ambulate and drink 8-10 glasses of water daily. pt used IS with me at bedside and intake was up to 2500. apple juice provided per her request.
[2019-10-06 07:49] LABS: BASOPHILS 0.1 % (0-2); EOSINOPHILS 3.6 % (0-7); HEMATOCRIT 30.5 % (36.0-48.0); HEMOGLOBIN 9.8 g/dL (12-16); IMMATURE GRANULOCYTES 0.3 % (0-5); LYMPHOCYTES 16.6 % (15-50); MCH 28.5 pg (26.0-34.0); MCHC 32.1 g/dL (31.0-37.0); MCV 88.7 fL (80.0-100.0); MEAN PLATELET VOLUME 9.8 fL (7.4-10.4); MONOCYTES 11.3 % (2-11); NEUTROPHILS 68.1 % (40-80); PLATELET COUNT 178 10x3/uL (130-400); RBC 3.44 10x6/uL (4.00-5.40); RDW 12.8 % (11.5-14.5)
--- NOTE | 2019-10-06 08:10 | NUR ---
DR MIRANDA IN ROOM ROUNDING ON PATIENT.
--- NOTE | 2019-10-06 08:30 | NUR ---
PT IN HIGH FOWLERS POSITION. PT REPORTS PAIN 10/10 IN HER ABDOMEN AND BASE OF NECK. PERCOCET 10/325MG GIVEN ALONG WITH SCHEDULED AM MEDS, SEE EMAR. PHYSICAL ASSESSMENT DONE, SEE SHIFT ASSESSMENT. SALINE LOCK IN LEFT HAND, FLUSHES EASILY, SITE C/D/I. NO CREPITUS NOTED AT THIS TIME. PT REPORTS "SORENESS" AT BASE OF NECK. BOWEL SOUNDS ACTIVE X 4; LAP INCISIONS NOTED X 3 WITH DERMABOND. ALL 3 C/D/I. MULTIPLE LESIONS NOTED ON LOWER EXTREMETIES AND ARMS. ALL ABOUT 1CM IN DIAMETER. PT REPORTS 'BURNING' SENSATION.
[2019-10-06 08:45] VITALS: BP 120/73
--- NOTE | 2019-10-06 09:05 | NUR ---
PT REQUESTS VALIUM AND MYLICON. BOTH GIVEN ORDERED. SEE EMAR
--- NOTE | 2019-10-06 11:00 | NUR ---
PT AMBULATING IN HALLWAY WITH FRIEND. DENIES NEEDS AT THIS TIME
--- NOTE | 2019-10-06 11:25 | NUR ---
PT BACK TO ROOM. DENIES NEEDS AT THIS TIME. RATES PAIN 6/10
--- NOTE | 2019-10-06 12:27 | NUR ---
PT FINAL INSPECTION SUPERVISOR LIGHT REPORTING PAIN 10/10 IN LOWER ABDOMEN AND REQUESTS PAIN MEDICATION. PERCOCET 10/325MG AND MOTRIN 600MG GIVEN PO. PT ALSO REQUESTS MYLICON AT THIS TIME. SEE EMAR. PT ON PHONE WITH AND BECOMES VERY UPSET AND TEARFUL BC SHE HAS ALREADY HAD ONE VISITOR TODAY AND THEILL NOT ALLOW HIM IN TO HER ROOM. EXPLAINED 1 VISITOR IN 24HR PERIOD RULE. PT ADAMANT THAT NO ONE HAS TOLD HER THE POLICY AND THAT SHE HAS HAD MULTIPLE VISITORS EVERY DAY. PT HAS SCREENER CALL PHARMACY DISTRICT MANAGER AND PHARMACY DISTRICT MANAGER SAYS CANNOT COME IN TODAY.
--- NOTE | 2019-10-06 12:40 | NUR ---
PT OUT IN HALLWAY CRYING AND DISCUSSING VISITOR POLICY, SHE DEMANDS THAT THE SLACKMAN COME SPEAK WITH HER. FE NOTIFIED. PT STATES THAT SHE MAY JUST SIGN HERSELF OUT IF HER IS NOT ALLOWED IN. PT AMBULATES OFF UNIT TO SEE IN ER WAITING ROOM.
--- NOTE | 2019-10-06 13:03 | NUR ---
PT BACK ON UNIT, VERY TEARFUL AND UPSET ABOUT HER NOT BEING ALLOWED TO COME TO ROOM DUE TO COVID POLICIES.
--- NOTE | 2019-10-06 13:50 | NUR ---
PT CAREGIVER ASSISTED LIVING LIGHT REQUESTING NURSE. THIS RN TO ROOM, PT IN DARK IN LEFT LATERAL POSITION CRYING AND ON THE PHONE WITH HER MOTHER. PT RATES PAIN 10/10 IN ABDOMEN AND STATES, "I TAKE WAY MORE PAIN MEDICINE THAN THIS ON A DAILY BASIS AT HOME. I NEED MORE. I AM HURTING". IT WAS NOTED THAT PT TAKES TRAMADOL MULTIPLE TIMES PER DAY. MOTHER OF PT STATES THAT WE ARE "CAUSING HER DAUGHTER PSYCHOLOGICAL AND PHYSICAL DISTRESS RIGHT AFTER FINDING OUT THAT SHE CANNOT HAVE ANYMORE CHILDREN AND SHE CANNOT BELIEVE THAT WE HAVE HER ON THE LABOR AND DELIVERY UNIT AFTER FINDNG OUT SUCH HORRIBLE NEWS". ASKED PT IF SHE WANTED THE PHYSICIAN CALLED TO INQUIRE ABOUT STARTING HER TRAMADOL, PT STATES, "THE TRAMADOL HASN'T BEEN WORKING, THAT IS WHY I CAME TO THE ER IN THE FIRST PLACE, I NEED SOMETHING STRONGER LIKE DILAUDID. THAT IS THE ONLY THING THAT TAKES THE EDGE OFF." WHEN ASKED IF SHE WOULD LIKE TO BE TRANSFERRED TO A DIFFERENT FLOOR, PT STATES, "I DONT KNOW, I DO NOT WANT ALL NEW NURSES. I JUST DON'T WANT TO HURT ANYMORE." PATIENT AND MOTHER ALSO STATE THAT THEY WANT AYLIN CABEZAS APRN NOTIFIED OF HER HOSPITALIZATION AND "HOW SHE IS BEING TREATED" IN REGARDS TO LACK OF PAIN MEDICINE. PT ALSO VERBALIZES BEING VERY UPSET AND DISTRESSED DUE TO HER NOT BEING ALLOWED TO SEE HER. PT AGAIN STATES THAT NO ONE TOLD HER THE POLICY ON ONE VISITOR. EXPLAINED TO PT THAT THIS RN WOULD PAGE PHYSICIAN TO DISCUSS PAIN CONTROL OPTIONS, WOULD DISCUSS TRANSFER AND VISITATION POLICY WITH TYRE FINISHER AND EXAMINER.
--- NOTE | 2019-10-06 14:20 | NUR ---
DR MIRANDA RETURNS PAGE. REPORT GIVEN OF PT REQUEST FOR DILAUDID. NO CHANGE TO PAIN MANAGEMENT AT THIS TIME. FE, MELTER HELPER, ON UNIT AND TO PT ROOM TO DISCUSS VISITATION POLICY WITH PATIENT.
--- NOTE | 2019-10-06 15:00 | NUR ---
PT REQUESTING VALIUM FOR ANXIETY AT THIS TIME. EXPLAINED THAT IT WAS ORDERED PRN BID AND THAT IF SHE TOOK IT NOW, SHE WOULD NOT BE ABLE TO TAKE ANYMORE FOR THE REST OF THE DAY. DAR IN PHARMACY STATES THAT THE SECOND DOSE COULD BE GIVEN THIS SOON FROM LAST DOSE. DR MIRANDA NOTIFIED OF PT REQUEST.
[2019-10-06 15:29] VITALS: BP 122/72
--- NOTE | 2019-10-06 16:45 | NUR ---
PT IN LEFT LATERAL POSITON RESTING WITH EYES CLOSED. RESP. EVEN AND UNLABORED.
--- NOTE | 2019-10-06 16:58 | NUR ---
PT SCREENING TECHNICIAN LIGHT REPORTING PAIN 6/10 IN ABDOMEN, MOSTLY ON LEFT SIDE. PT REQUESTS PERCOCET AND MYLICON. BOTH GIVEN PO ORDERED. SEE EMAR. PT DENIES FURTHER NEEDS AT THIS TIME.
--- NOTE | 2019-10-06 18:25 | NUR ---
PT IN LEFT LATERAL POSITION RESTING WITH EYES CLOSED. RESP. EVEN AND UNLABORED.
--- NOTE | 2019-10-06 19:10 | NUR ---
REPORT GIVEN TO 7P SHIFT
[2019-10-06 19:38] VITALS: BP 109/67
--- NOTE | 2019-10-06 19:40 | NUR ---
PT RINGS CALL LIGHT RN TO ROOM W/MOTRIN AND TO PERFORM SHIFT ASSESSMENT. PT TEARFUL AND MOANING WITH PAIN. PT REPORTS PAIN 8/10 IN HER ABD. WHEN ASKED TO DESCRIBE HER PAIN, PT STATES "IT FEEL LIKE MY INSIDES ARE ABOUT TO FALL OUT." PT REQUESTING HER PERCOCET AT THIS TIME. PT INFORMED SHE MAY NOT HAVE ADDITIONAL PAIN MEDICATION UNTIL 9PM. ALL MEDS AVAILABLE LISTED FOR PT. PT ARGUES THAT LAST PAIN MEDICATION WAS YESTERDAY 10/05 AND TODAY IS THE 17TH. PT INFORMED THAT IT IS IN FACT THE 16TH TODAY AND EMAR REFLECTS LAST PAIN MEDICATION WAS GIVEN 2 MINS PRIOR TO 5PM. PT INFORMED THAT ALL PAIN MEDICATION WILL BE GIVEN IN TIMELY MANOR ON THIS PM SHIFT IN EFFORTS TO CONTROL HER PAIN. PT CONTINUES TO BE TEARFUL AND GIVING AN ACCOUNT OF EVENTS OF TODAY. HEATING PAD SUGGESTED, PT ACCEPTS AND SUPPLIED. CUP OF ICE SERVED PER PT REQUEST. PT DECLINES OFFER TO BRING HER SOMETHING TO EAT OR DRINK AT THIS TIME. PT KEEPS WHAT SHE WANTS OFF DINNER TRAY AND TRAY REMOVED FROM ROOM. PT DENIES NEEDS AT THIS TIME. BED LOW, SIDE RAILS UP X 2. CALL LIGHT AND PHONE AT PT'S SIDE. BEDSIDE TABLE AT PT'S SIDE.
--- NOTE | 2019-10-06 20:50 | NUR ---
THIS RN TO BEDSIDE W/SCHEDULED MEDS. PT REQUEST PERCOCET AT THIS TIME. MED GIVEN. SOUP AND PIE WARMED FOR PT AT THIS TIME. PT TO SITTING UP IN BED TO EAT. PT STATES SHE PLANS TO SHOWER AFTER SHE EATS. TOWELS, PADS AND XL PANTIES PER PT REQUEST PROVIDED.
--- NOTE | 2019-10-06 21:52 | NUR ---
ROUNDS MADE. PT SITTING UP IN BED. REPORTS PAIN BEING THE SAME. PT ABLE TO EAT 100% OF CUP OF SOUP AND APPROX 25% OF APPLE PIE. PT SOUP BOWLS AND TRASH OFF OF TRAY REMOVED. PT DENIES NEEDS. PT STILL PLANS TO GET IN THE SHOWER.
--- NOTE | 2019-10-06 23:00 | NUR ---
ROUNDS MADE. PT UP TO SHOWER AT THIS TIME.
--- NOTE | 2019-10-06 23:45 | NUR ---
ROUNDS MADE. PT FOUND TO BE GETTING OUT OF THE SHOWER. ABLE TO DRESS SELF W/SOME ASSISTANCE W/GETTING BOTTOMS PULLED UP. PT REPORTS SHE IS UNABLE TO BEND OVER TO REACH DOWN. PT DOES NOT APPEAR TO BE IN DISTRESS. PAIN ASSESSED. PT REPORTS ABD PAIN 09/29. PT DECLINES OFFERS TO BRING HER SOMETHING TO EAT OR DRINMK AT THIS TIME. PT SHOWS THIS RN THE 5 "SORE" SPOTS ON HER LEGS, ARM AND CHEST. PT FEELS THEY ARE RINGWORMS. REQUEST A CREAM TO PLACE ON THEM. PT NOTIFIED MD WILL BE PAGED TO REPORT AND RECEIVE ORDERS. PT VERBALZIES UNDERSTANDING.
--- NOTE | 2019-10-06 23:54 | NUR ---
DR RUTH MENDENHALL.
--- NOTE | 2019-10-07 | NUR ---
DR MIRANDA RETURNS CALL.REPORT OF PT'S REQUEST FOR CREAM FOR WHAT PT FEELS ARE RINGWORMS. GIVES ORDER FOR HYDROCORTISONE.
--- NOTE | 2019-10-07 01:00 | NUR ---
THIS RN TO BEDSIDE TO ADMIN PERCOCET PER PT REQUEST. PT LYING IN BED. RATES PAIN 08/29. DENIES FURTHER NEEDS. STATES "THIS HEATING PAD IS WONDERFUL."
--- NOTE | 2019-10-07 02:15 | NUR ---
ROUNDS MADE. PT LYING TO RT SIDE W/HOB ELEVATED. SNORING AUIBLE. RESP EVEN AND UNLABORED. PT LEFT UNDISTURBED AT THIS TIME.
--- NOTE | 2019-10-07 04:00 | NUR ---
ROUNDS MADE. PT LYING AWAKE IN BED. DENIES NEEDS. PT INFORMED PAIN MEDICATION WILL BE BROUGHT TO HER PER HER REQUEST AT 5AM.
--- NOTE | 2019-10-07 04:50 | NUR ---
RN TO BEDSIDE W/PERCOCET AND MOTRIN FOR ADMIN. PT LYING AWAKE IN BED. VITAL SIGNS OBTAINED. SEE FLOWSHEET. PT RATES PAIN 08/29. FRESH ICE SERVED. HYDROCOTISONE CREAM PROVIDED. PT UP TO THE BR AT THIS TIME. REPORTS SHE PLANS TO USE HER OWN PERSONAL PAIN CREAM. DENIES NEEDS.
[2019-10-07 04:53] VITALS: BP 107/55
[2019-10-07 07:06] LABS: BASOPHILS 0.2 % (0-2); EOSINOPHILS 2.8 % (0-7); HEMATOCRIT 30.7 % (36.0-48.0); HEMOGLOBIN 9.6 g/dL (12-16); IMMATURE GRANULOCYTES 0.6 % (0-5); LYMPHOCYTES 15.2 % (15-50); MCH 27.8 pg (26.0-34.0); MCHC 31.3 g/dL (31.0-37.0); MEAN PLATELET VOLUME 9.8 fL (7.4-10.4); MONOCYTES 13.2 % (2-11); PLATELET COUNT 193 10x3/uL (130-400); RBC 3.45 10x6/uL (4.00-5.40)
[2019-10-07 07:17] LABS: WBC 9.6 10x3/uL (4.8-10.8)
--- NOTE | 2019-10-07 09:05 | NUR ---
entered room. pt on lt side. awake. verbal responses appro to questions. co getting worse -co pain and pressure. states pain has "skyrocketed" requesting pain medication -rates pain 6 on scale of 0-10. no swelling of neck. bowel sounds present. lap incisions with dermabond x3 noted and wnl.
--- NOTE | 2019-10-07 09:22 | NUR ---
MEDS GIVEN REQUESTED.
--- NOTE | 2019-10-07 11:50 | NUR ---
DR ARAMBULA HERE TO SEE PT.
[2019-10-07] MEDS ORDERED: PERCOCET 10-321 EAC1 PO (12:26)
--- NOTE | 2019-10-07 12:40 | NUR ---
DISCHARGE INST VERBAL AND WRITTEN GIVEN. SCRIPT X1 FOR PERCOCET GIVEN. PT STATES THAT SHE IS NEEDING PAIN MEDICATION EVERY 4 HOURS WHILE HERE. SEE ALSO SIGNED DISCHARGE INST. PFW POST OP LAP SURGERY INST GIVEN. PT MED REC AND DRUG DATA INFO GIVEN. PT HEALTH SUMMARY GIVEN. DENIES QUESTIONS. STATES SHE IS UNSURE WHEN HER RIDE CAN GET HERE. PT REQUESTING PAIN MEDICATION AT THIS TIME.
--- NOTE | 2019-10-07 15:37 | NUR ---
RINGS CALL LIGHT- REQUESTING IBUPROFEN -STATES PAIN IS AT A 7 ON SCALE OF 0-10. ENTERED ROOM. UP AND ABOUT. PT STATES HER MOTHER IS ON HER WAY TO PICK HER UP.
--- NOTE | 2019-10-07 16:29 | NUR ---
PT STATES THAT HER RIDE IS HERE AND SHE IS READY FOR W/C. PT DISCHARGED FROM UNIT- TO AUTO VIA W/C.
[2019-10-09] MEDS ORDERED: FOLBIC RF TABL1 EACH IM (18:46)
== END 2019-10-07 16:31 | disposition home or self-care (01) | DRG 743 ==
LOC: OBSVTIME 16:00 → D.WS 16:00 → OBSVTIME 17:27 → D.WS 10-02 09:57 → D.LD 10-02 18:30
PROVIDERS: Obstetrics & Gynecology; ADMIT Student in an Organized Health Care Education/Training Program; ATTEND Student in an Organized Health Care Education/Training Program
PROC: 0DNW4ZZ Release Peritoneum, Percutaneous Endoscopic Approach (ICD-10-PCS; 2019-10-02)
PROC: 0UC Female Reproductive System, Extirpation (ICD-10-PCS; 2019-10-02)
PROC: 0UB04ZZ Excision of Right Ovary, Percutaneous Endoscopic Approach (ICD-10-PCS; principal; 2019-10-02 07:00)
DX: N83.201 Unspecified ovarian cyst, right side (principal); N73.6 Female pelvic peritoneal adhesions (postinfective); N80.3 Endometriosis of pelvic peritoneum; T81.82XA Emphysema (subcutaneous) resulting from a procedure, initial encounter; Y83.9 Surgical procedure, unspecified as the cause of abnormal reaction of the patient, or of later complication, without mention of misadventure at the time of the procedure; D72.829 Elevated white blood cell count, unspecified

== ENCOUNTER → 2019-10-09 17:46 | Outpatient (CLI) | payer MEDICAID ==
[2019-10-02 15:38] VITALS: BMI 19.7
--- NOTE | 2019-10-09 17:45 | NUR ---
dr. smith in room, speaking with pt regarding plan of care. dr. smith to desk, verbal order received from md to administer protonix 40 mg po now, and dilaudid 2 mg im now, obtain kub, flat/and upright views, cbc with diff, and cmp, and pt is to remain npo.
[~2019-10-09 17:46] MED LIST changes: +ADDERALL 30 MG30 MG PO; +CYCLOBENZAPRINE10 MG PO; +FOLBIC RF TABL1 EACH IM; +GABAPENTIN300 MG PO; +IBUPROFEN800 MG PO; +PERCOCET 10-321 EAC1 PO; +THIAMINE IN100 MG/ML IM
--- NOTE | 2019-10-09 18:15 | NUR ---
XRAY HERE TO TAKE PT FOR KUB, FLAT AND UPRIGHT.
--- NOTE | 2019-10-09 18:30 | NUR ---
LAB HERE TO DRAW BLOOD WORK.
[2019-10-09 18:32] VITALS: BP 117/62
--- NOTE | 2019-10-09 18:32 | NUR ---
TEMP 98.2, BP 117/62, P 97, R 16, O2 SAT ON ROOM AIR 100 %.
[2019-10-09 18:40] LABS: BASOPHILS 0.3 % (0-2); EOSINOPHILS 2.4 % (0-7); HEMATOCRIT 30.8 % (36.0-48.0); HEMOGLOBIN 9.4 g/dL (12-16); IMMATURE GRANULOCYTES 1.3 % (0-5); LYMPHOCYTES 18.5 % (15-50); MCH 27.6 pg (26.0-34.0); MCHC 30.5 g/dL (31.0-37.0); MCV 90.6 fL (80.0-100.0); MEAN PLATELET VOLUME 9.2 fL (7.4-10.4); MONOCYTES 16.2 % (2-11); NEUTROPHILS 61.3 % (40-80); PLATELET COUNT 212 10x3/uL (130-400); RDW 13.3 % (11.5-14.5); WBC 8.7 10x3/uL (4.8-10.8)
[2019-10-09 18:55] LABS: CALC OSMOLALITY 273 mosm/kg (275-300); CALCIUM 8.6 mg/dL (8.5-10.1); CARBON DIOXIDE 30.4 mmol/L (21.0-32.0); CHLORIDE - SERUM 103 mmol/L (98-107); CREATININE - SERUM 0.7 mg/dL (0.6-1.3); GLUCOSE 95 mg/dL (74-106); POTASSIUM - SERUM 3.9 mmol/L (3.5-5.1); SODIUM 138 mmol/L (136-145); UREA NITROGEN 8 mg/dL (7-18); eGFR NON AFRICAN AMERICAN > 90 mL/min (90-120)
[2019-10-09 19:01] LABS: ALKALINE PHOSPHATASE 105 U/L (30-120); ALT (SGPT) 101 U/L (10-68); PROTEIN - SERUM 6.2 g/dL (6.4-8.2)
--- NOTE | 2019-10-09 19:10 | NUR ---
CALL REC'D FROM DR PADGETT, REPORT OF KUB GIVEN ORDERS REC'D TO D/C PT TO HOME W/ INSTRUCTIONS TO FOLLOW UP IN CLINIC NEXT WEEK. RX GIVEN, TO PT ROOM, POC DISCUSSED. ICE PACK GIVEN FOR ABD FOR RIDE HOME AT REQUEST OF PT. RX GIVEN. OUT TO CAR VIA WC
== END | disposition home or self-care (01) ==
LOC: D.LDO 17:46
PROVIDERS: ATTEND Obstetrics & Gynecology
DX: G89.18 Other acute postprocedural pain (principal)

== ENCOUNTER → 2019-10-16 13:18 | Outpatient (CLI) | payer MEDICAID ==
[2019-10-02 15:38] VITALS: BMI 19.7
== END | disposition home or self-care (01) ==
LOC: D.US 13:18
PROVIDERS: ATTEND Student in an Organized Health Care Education/Training Program
DX: R22.42 Localized swelling, mass and lump, left lower limb (principal); R14.0 Abdominal distension (gaseous)

== ENCOUNTER 2020-05-21 07:55 | Emergency (ER) | payer MEDICAID ==
[~2020-05-21] VITALS: Ht 157.5 cm; Wt 52.3 kg
[2020-05-21 08:00] VITALS: BP 137/81; Ht 157.5 cm; Wt 52.3 kg
[2020-05-21 08:25] LABS: HCG SERUM NEGATIVE (NEGATIVE)
[2020-05-21 08:27] LABS: CALC OSMOLALITY 275 mosm/kg (275-300); CALCIUM 8.9 mg/dL (8.5-10.1); CARBON DIOXIDE 26.3 mmol/L (21.0-32.0); CHLORIDE - SERUM 102 mmol/L (98-107); CREATININE - SERUM 0.7 mg/dL (0.6-1.3); GLUCOSE 102 mg/dL (74-106); POTASSIUM - SERUM 3.7 mmol/L (3.5-5.1); SODIUM 138 mmol/L (136-145); UREA NITROGEN 12 mg/dL (7-18); eGFR NON AFRICAN AMERICAN > 90 mL/min (90-120)
[2020-05-21 08:30] LABS: BASOPHILS 0.8 % (0-2); EOSINOPHILS 3.8 % (0-7); HEMATOCRIT 35.3 % (36.0-48.0); HEMOGLOBIN 11.2 g/dL (12-16); IMMATURE GRANULOCYTES 0.1 % (0-5); LYMPHOCYTE ABS# 3.23 10x3/uL (1.18-3.74); LYMPHOCYTES 43.5 % (15-50); MCH 26.6 pg (26.0-34.0); MCHC 31.7 g/dL (31.0-37.0); MCV 83.8 fL (80.0-100.0); MEAN PLATELET VOLUME 10.2 fL (7.4-10.4); MONOCYTES 9.8 % (2-11); NEUTROPHIL ABS# 3.12 10x3/uL (1.56-6.13); RBC 4.21 10x6/uL (4.00-5.40); RDW 13.8 % (11.5-14.5); WBC 7.4 10x3/uL (4.8-10.8)
[2020-05-21 08:34] LABS: ALBUMIN 4.2 g/dL (3.4-5.0); ALKALINE PHOSPHATASE 57 U/L (30-120); ALT (SGPT) 18 U/L (10-68); BILIRUBIN - TOTAL 0.21 mg/dL (0.2-1.3); MAGNESIUM - SERUM 2.3 mg/dL (1.8-2.4); PROTEIN - SERUM 7.6 g/dL (6.4-8.2)
[2020-05-21 08:35] LABS: PLATELET COUNT 274 10x3/uL (130-400)
[2020-05-21 09:02] LABS: BILIRUBIN NEGATIVE (NEGATIVE); KETONE NEGATIVE (NEGATIVE); NITRITE NEGATIVE (NEGATIVE); UROBILINOGEN NORMAL mg/dL (< 2)
[2020-05-21 09:03] LABS: UDS - AMPHET NEGATIVE QUAL (NEGATIVE); UDS - BARB NEGATIVE QUAL (NEGATIVE); UDS - BENZO POSITIVE QUAL (NEGATIVE); UDS - COCAINE NEGATIVE QUAL (NEGATIVE); UDS - OPIATE POSITIVE QUAL (NEGATIVE); UDS - PCP NEGATIVE QUAL (NEGATIVE); UDS - THC NEGATIVE QUAL (NEGATIVE)
[2020-05-21 09:05] LABS: BACTERIA MODERATE HPF (NONE SEEN); SQUAMOUS EPITHELIAL 0-5 HPF (0-4); WHITE CELLS - URINE OCC HPF (0-4)
[2020-05-21] MEDS ORDERED: ULTRAM50 MG PO (09:48)
== END 2020-05-21 10:04 | disposition home or self-care (01) ==
LOC: D.ER 07:55
PROVIDERS: Emergency Medicine
DX: N76.0 Acute vaginitis (principal); M79.7 Fibromyalgia; F19.239 Other psychoactive substance dependence with withdrawal, unspecified; G62.9 Polyneuropathy, unspecified

== ENCOUNTER 2020-06-17 19:21 | Emergency (ER) | payer MEDICAID ==
[~2020-06-17] VITALS: Ht 157.5 cm; Wt 52.2 kg
[2020-06-17 19:23] VITALS: Ht 157.5 cm; Wt 52.2 kg
[2020-06-17 20:11] LABS: BASOPHILS 0.2 % (0-2); EOSINOPHILS 1.3 % (0-7); HEMATOCRIT 32.1 % (36.0-48.0); HEMOGLOBIN 10.3 g/dL (12-16); IMMATURE GRANULOCYTES 0.2 % (0-5); LYMPHOCYTE ABS# 2.37 10x3/uL (1.18-3.74); LYMPHOCYTES 27.2 % (15-50); MCH 26.3 pg (26.0-34.0); MCHC 32.1 g/dL (31.0-37.0); MCV 82.1 fL (80.0-100.0); MEAN PLATELET VOLUME 9.5 fL (7.4-10.4); MONOCYTES 7.7 % (2-11); NEUTROPHIL ABS# 5.51 10x3/uL (1.56-6.13); NEUTROPHILS 63.4 % (40-80); PLATELET COUNT 246 10x3/uL (130-400); RBC 3.91 10x6/uL (4.00-5.40); RDW 13.8 % (11.5-14.5); WBC 8.7 10x3/uL (4.8-10.8)
[2020-06-17 20:23] LABS: CALC OSMOLALITY 279 mosm/kg (275-300); CARBON DIOXIDE 26.1 mmol/L (21.0-32.0); CHLORIDE - SERUM 104 mmol/L (98-107); CREATININE - SERUM 0.8 mg/dL (0.6-1.3); GLUCOSE 116 mg/dL (74-106); POTASSIUM - SERUM 3.3 mmol/L (3.5-5.1); SODIUM 139 mmol/L (136-145); UREA NITROGEN 16 mg/dL (7-18); eGFR NON AFRICAN AMERICAN 90 mL/min (90-120)
[2020-06-17 20:29] LABS: ALBUMIN 4.1 g/dL (3.4-5.0); ALKALINE PHOSPHATASE 61 U/L (30-120); ALT (SGPT) 16 U/L (10-68); BILIRUBIN - TOTAL 0.12 mg/dL (0.2-1.3); PROTEIN - SERUM 7.8 g/dL (6.4-8.2)
[2020-06-17 20:35] LABS: HCG SERUM NEGATIVE (NEGATIVE)
[2020-06-17 21:20] VITALS: BP 140/80
== END 2020-06-17 21:20 | disposition home or self-care (01) ==
LOC: D.ER 19:21
PROVIDERS: Emergency Medicine
DX: R10.32 Left lower quadrant pain (principal); G62.9 Polyneuropathy, unspecified